=== PATIENT | male | born 1995 | race Caucasian/White ===

== ENCOUNTER 2021-05-05 08:46 | Emergency (ER) | payer OTHER ==
[~2021-05-05] VITALS: Ht 175.3 cm; Wt 83.9 kg
[2021-05-05] MEDS ORDERED: BENADRYL25 MG PO (09:19)
[2021-05-05] MEDS ORDERED: Pepcid20 MG PO (09:19)
== END 2021-05-05 09:30 | disposition home or self-care (01) ==
LOC: ER 08:46
DX: L23.7 Allergic contact dermatitis due to plants, except food (principal); Z88.0 Allergy status to penicillin
CPT/HCPCS: 96372; 99282-25; A9270; J1100